=== PATIENT | female | born 1945 | race Two or more races ===

== ENCOUNTER 2018-02-25 08:14 | Emergency (ER) | payer OTHER ==
[~2018-02-25] VITALS: Ht 154.9 cm; Wt 63.5 kg
[~2018-02-25 08:14] MED LIST: AMLODIPINE BESYL5 MG; ATORVASTATIN CA10 MG
[2018-02-25] MEDS ORDERED: DICLOFENAC SODI50 MG PO (11:05)
== END 2018-02-25 11:49 | disposition home or self-care (01) ==
LOC: ER 08:14
DX: S02.2XXA Fracture of nasal bones, initial encounter for closed fracture (principal); S00.33XA Contusion of nose, initial encounter; S60.221A Contusion of right hand, initial encounter; S80.02XA Contusion of left knee, initial encounter; W01.0XXA Fall on same level from slipping, tripping and stumbling without subsequent striking against object, initial encounter; Y93.89 Activity, other specified; Y92.098 Other place in other non-institutional residence as the place of occurrence of the external cause; Y99.8 Other external cause status

== ENCOUNTER 2020-10-31 11:32 | Emergency (ER) | payer OTHER ==
[~2020-10-31] VITALS: Ht 152.4 cm; Wt 60.8 kg
[~2020-10-31 11:32] MED LIST changes: +DICLOFENAC SODI50 MG PO
== END 2020-10-31 14:23 | disposition home or self-care (01) ==
LOC: ER 11:32
DX: L02.415 Cutaneous abscess of right lower limb (principal)